=== PATIENT | female | born 1985 | race Two or more races ===

== ENCOUNTER 2016-05-26 13:45 | Observation (INO) | payer OTHER ==
[2016-05-26 14:19] VITALS: BMI 34.2
[2016-05-26 14:38] LABS: HEMOGLOBIN 13.1 gm/l (12.0-16.0); MEAN CELL VOLUME 86.2 fl (81.0-99.0); MEAN CORPUSCULAR HEMOGLOBIN 29.7 pg (27.0-31.0); MEAN CORPUSCULAR HGB CONC 34.5 g/dl (33.0-37.0); RED CELL DISTRIBUTION WIDTH 13.7 % (11.5-14.5)
[2016-05-26 15:07] LABS: CREATININE,RANDOM URINE 242 mg/dL
[2016-05-26 15:12] LABS: ALBUMIN 3.1 gm/dL (3.5-5.7); CALCIUM 8.8 mg/dL (8.6-10.3)
[2016-05-26] MEDS ORDERED: STERILE IV PRN (16:12)
[2016-05-26] MEDS ORDERED: SODIUM CHLORIDE 0.9% IV PRN (16:12)
[2016-05-26] MEDS ORDERED: IV START KIT ONE (17:10)
[2016-05-26] MEDS ORDERED: SODIUM CHLORIDE 0.9% FLUSH 10 ML ONE (17:10)
--- NOTE | 2016-05-26 17:41 | US ---
OB FOLLOW UP COMPARISON: 03/09/2016 obstetric ultrasound HISTORY: Gestational age 33 weeks 5 days. Decreased movement and maternal hypertension. Suspected intrauterine growth retardation. FINDINGS: breathing movements: 2 motion: 0 tone: 2 Amniotic fluid volume: 2 (SUZAN 4.45 cm). Single deepest pocket 2.8 heart rate: 144 bpm Presentation: Cephalic BPD 1.6 cm = 30 weeks 3 days HC 27.6 cm = 30 weeks 1 day Before meals: 23.2 cm = 27 weeks 4 days FL: 5.6 cm = 29 weeks 2 days Average ultrasound age: 29 weeks 3 days Estimated weight: 1247 g +/- 187 g IMPRESSION: 1. biophysical profile score 6 out of 8, 2. Intrauterine growth retardation and oligohydramnios. The results were discussed with Charissa Trinh MD 05/26/2016 at 17:37
[2016-05-26] MEDS ORDERED: PUMP TUBING ONE ×2 (17:43→18:12)
[2016-05-26] MEDS ORDERED: LACTATED RINGERS 1,000 ML ONE (17:43)
[2016-05-26] MEDS ORDERED: BETAMETHASONE ACET 6 MG/ML 5ML VIAL IM ONE (17:50)
[2016-05-26] MEDS ORDERED: LACTATED RINGERS 1,000 ML IV SCH ×2 (18:00→18:15)
[2016-05-26] MEDS ORDERED: ACETAMINOPHEN 500 MG TABLET PO PRN (18:09)
[2016-05-26] MEDS ORDERED: MAGNESIUM SULFATE 4 G/100 ML 4 G in PREMIX BAG 1 EACH IV ONE (18:09)
[2016-05-26] MEDS ORDERED: MAGNESIUM SULFATE 4 G/100 ML 100 ML IV ONE (18:12)
[2016-05-26] MEDS ORDERED: MAGNESIUM SULFATE 20 G/500 ML 500 ML IV SCH (18:15)
--- NOTE | 2016-05-26 18:45 | PCMAN ---
OB Admission Note - History : 3 Term: 2 : 0 Abortions (S&E): 0 Livin Gestational Age (weeks): 33 Days (#/7): 5 Membrane Status: Intact Contractions: No Status:: stable EFW:: 1247gm Summary of Course:: 31 y/o female @ 33 5/7 wks GA. Presented to clinic today for BP check after having been found to have elevated BP's in the occupational health clinic today. Her TINO is 07/09/16 by LMP c/w 20 wk U/S. Her complication has been obesity. Was just seen yesterday for OB check with normal BP's and trace protein at that visit. When the pt. was seen at the [facility] she denied BORJA's or visual changes. +FM. Sent to L&D for further evaluation. cBC, CMP were normal. CR/PROT ratio was elevated at 777. BPP showed no movement and an SUZAN of 4.4cm. - Labs Blood Type: A (+) positive (antibody negative) Hct/Hgb:: 13.1 Rubella Status: Immune GBS Status: Unknown Abnormal Labs: Other (1hr 12/30/15= 138. 3hr 01/06/16 94/125/113/70) - Physical Exam General: Afebrile Psych/Mental Status: Mood/Affect Appropriate Neurological: Alert Lungs: Clear to Auscultation Bilaterally, Normal Air Movement Cardiovascular: Regular Rate and Rhythm Abdomen: Normal Bowel Sounds Skin: Normal Color - Problems (1) Preeclampsia Status: Acute Code: O14.90Assessment/Plan: 31 y/o female @ 33 5/7 wks GA with severe preclampsia and oligohydramnios. Started on MgSO4. Betamethasone given. Case reviewed with MFM front desk administrator [place],. Dr. Hill he mari accept pt. given the gestational age.
== END 2016-05-26 20:12 | disposition other institution (70) ==
LOC: FBCOUT 13:45 → FBC 13:48 → FBCOUT 16:22 → FBC 16:22
PROVIDERS: ADMIT Family Medicine; ATTEND Family Medicine
DX: O14.13 Severe pre-eclampsia, third trimester (principal); O41.03X0 Oligohydramnios, third trimester, not applicable or unspecified; Z3A.33 33 weeks gestation of pregnancy